=== PATIENT | male | born 1965 | race Caucasian/White ===

== ENCOUNTER 2017-08-02 17:34 | Emergency (ER) | payer OTHER ==
[2017-08-02 18:15] LABS: BASOPHILS 0.5 % (0-2); EOSINOPHILS 1.9 % (0-7); HEMATOCRIT 47.2 % (42.0-54.0); HEMOGLOBIN 16.6 g/dL (13.5-17.5); IMMATURE GRANULOCYTES 0.2 % (0-5); MCH 32.3 pg (26.0-34.0); MCHC 35.2 g/dL (31.0-37.0); MCV 91.8 fL (80.0-100.0); MEAN PLATELET VOLUME 10.1 fL (7.4-10.4); MONOCYTES 9.3 % (2-11); NEUTROPHILS 49.1 % (40-80); PLATELET COUNT 316 10x3/uL (130-400); RBC 5.14 10x6/uL (4.20-6.10); RDW 12.6 % (11.5-14.5); WBC 10.4 10x3/uL (4.8-10.8)
[2017-08-02 18:47] LABS: ALBUMIN 3.8 g/dL (3.4-5.0); ANION GAP 11.5 mmol/L (8-16); BILIRUBIN - TOTAL 0.51 mg/dL (0.2-1.3); CARBON DIOXIDE 26.4 mmol/L (21.0-32.0); CREATININE - SERUM 1.4 mg/dL (0.6-1.3); POTASSIUM - SERUM 3.9 mmol/L (3.5-5.1); PROTEIN - SERUM 7.9 g/dL (6.4-8.2)
[2017-08-02 18:56] LABS: APPEARANCE CLEAR (CLEAR); BILIRUBIN NEGATIVE (NEGATIVE); COLOR YELLOW (YELLOW); GLUCOSE NEGATIVE (NEGATIVE); KETONE NEGATIVE (NEGATIVE); NITRITE NEGATIVE (NEGATIVE); PROTEIN NEGATIVE (NEGATIVE); UROBILINOGEN NORMAL (NORMAL)
[2017-08-02 18:59] LABS: RED CELLS - URINE 0-5 /hpf (0-5)
[2017-08-02 19:00] LABS: BACTERIA FEW /hpf (NONE SEEN); WHITE CELLS - URINE OCC /hpf (0-5)
[2017-08-27] MEDS ORDERED: ZESTORETIC 20/21 TAB PO (12:07)
[2017-08-28 07:25] VITALS: BMI 33.9
== END 2017-08-02 20:44 | disposition home or self-care (01) ==
LOC: D.ER 17:34 → EDBD 17:34 → D.ER 20:44
PROVIDERS: Emergency Medicine
DX: K52.9 Noninfective gastroenteritis and colitis, unspecified (principal); I10 Essential (primary) hypertension

== ENCOUNTER 2017-08-28 07:28 | Day surgery (SDC) | payer OTHER ==
[2017-08-27 12:42] LABS: BASOPHILS 0.7 % (0-2); EOSINOPHILS 1.7 % (0-7); HEMATOCRIT 47.3 % (42.0-54.0); HEMOGLOBIN 16.2 g/dL (13.5-17.5); IMMATURE GRANULOCYTES 0.1 % (0-5); LYMPHOCYTES 36.2 % (15-50); MCHC 34.2 g/dL (31.0-37.0); MCV 93.3 fL (80.0-100.0); MONOCYTES 7.8 % (2-11); NEUTROPHILS 53.5 % (40-80); PLATELET COUNT 336 10x3/uL (130-400); RBC 5.07 10x6/uL (4.20-6.10); RDW 12.6 % (11.5-14.5); WBC 8.9 10x3/uL (4.8-10.8)
[2017-08-27 13:06] LABS: CALC OSMOLALITY 276 mosm/kg (275-300); CALCIUM 9.3 mg/dL (8.5-10.1); CHLORIDE - SERUM 101 mmol/L (98-107); CREATININE - SERUM 1.1 mg/dL (0.6-1.3); GLUCOSE 100 mg/dL (74-106); POTASSIUM - SERUM 4.1 mmol/L (3.5-5.1); SODIUM 137 mmol/L (136-145); UREA NITROGEN 21 mg/dL (7-18); eGFR NON AFRICAN AMERICAN 75 mL/min (90-120)
[~2017-08-28] VITALS: Ht 172.7 cm; Wt 101.2 kg
--- NOTE | ~2017-08-28 | OP ---
PATIENT NAME: GIL ZARAGOZA MEDICAL RECORD: [id number] :69 LOCATION:[facility] ADMISSION DATE: SURGEON: MIGUEL BLAND MD DATE OF OPERATION: 08/28/2017 PREOPERATIVE DIAGNOSES: 1. Gallstones. 2. Umbilical hernia. 3. Hypertension. 4. Hypercholesterolemia. POSTOPERATIVE DIAGNOSES: 1. Gallstones. 2. Umbilical hernia. 3. Hypertension. 4. Hypercholesterolemia. PROCEDURE: 1. Laparoscopic cholecystectomy. 2. Umbilical hernia repair with 4.3 cm Proceed mesh. SURGEON: Miguel Bland MD REPORT OF PROCEDURE: The patient's abdomen was prepped and draped in sterile fashion. A semicircular incision was made on the inferior aspect of the umbilicus. Electrocautery was used to dissect through the subcutaneous tissues and through the umbilical stalk. Upon doing this, we could see that the fascial defect was almost 2 cm in greatest diameter. The 0 Vicryls were placed on the fascia bilaterally and I bluntly entered the peritoneal cavity. A 12-mm Zen port was inserted. After insufflation was obtained and then under direct visualization, a 5 mm trocar was placed in the epigastrium and 2 more 5-mm trocars were placed in the right subcostal region. The gallbladder was grasped and elevated. There were some fatty adhesions present and these were teased down carefully with blunt dissection. The cystic artery and cystic duct were dissected free and these were clipped proximally and distally and ligated in standard fashion. The gallbladder was taken off the liver bed using electrocautery and placed in the right upper quadrant. Any bleeding from the liver bed was treated with electrocautery. We irrigated out the right upper quadrant and assured there was no bleeding or bile leakage. At this point, the gallbladder was taken out through the umbilicus. We cleared off the umbilical fascia above and below and placed a 4.3 cm Proceed patch in an underlay fashion. This was sutured to the fascia using interrupted 0 Prolenes times 4. The wound was then irrigated out thoroughly with normal saline. The fascia was closed transversely using running 0 Vicryls. The umbilicus was then tacked down to the fascia using an interrupted 3-0 Vicryl. The subcutaneous tissues were reapproximated with interrupted 3-0 Vicryl and then infused with 10 mL of 0.25% Marcaine with epinephrine. The skin incisions were closed with subcutaneous 5-0 Monocryl and dressed appropriately. COMPLICATIONS: None. CONDITION: Stable. ANESTHESIA: General endotracheal and local. OPERATIVE REPORT [id number] GIL ZARAGOZA BLOOD LOSS: Minimal. TRANSINT:[id number] Voice Confirmation ID: [id number] DOCUMENT ID: [id number] MIGUEL BLAND MD at 1309 CC: PERRY FARRELL [id number] DICTATION DATE: 08/28/17951 STEEL DIVISION SUPERVISOR: 08/28/17 1136 [facility] 08/28/17 [id number] [place] [address]
[2017-08-28 07:25] VITALS: BP 124/87; Ht 172.7 cm; Wt 101.2 kg
[~2017-08-28 07:28] MED LIST: ZESTORETIC 20/21 TAB PO
[2017-08-28] MEDS ORDERED: HYDROCODONE-APA1 TAB PO (09:48)
== END 2017-08-28 13:16 | disposition home or self-care (01) ==
LOC: D.OPS 07:28 → D.PAN 09:45 → D.OPS 09:45
PROVIDERS: Surgery
DX: K80.20 Calculus of gallbladder without cholecystitis without obstruction (principal); K42.9 Umbilical hernia without obstruction or gangrene; I10 Essential (primary) hypertension; E78.00 Pure hypercholesterolemia, unspecified; Z01.812 Encounter for preprocedural laboratory examination

== ENCOUNTER 2019-01-30 18:50 | Observation (INO) | payer OTHER ==
[~2019-01-30] VITALS: Ht 172.7 cm; Wt 59.1 kg
[~2019-01-30 18:50] MED LIST changes: +HYDROCODONE-APA1 TAB PO
[2019-01-30 19:16] VITALS: BP 118/79
[2019-01-30 19:23] LABS: BASOPHILS 0.5 % (0-2); EOSINOPHILS 2.6 % (0-7); HEMATOCRIT 52.1 % (42.0-54.0); HEMOGLOBIN 17.4 g/dL (13.5-17.5); IMMATURE GRANULOCYTES 0.2 % (0-5); LYMPHOCYTES 49.8 % (15-50); MCH 31.8 pg (26.0-34.0); MCHC 33.4 g/dL (31.0-37.0); MCV 95.2 fL (80.0-100.0); MEAN PLATELET VOLUME 9.7 fL (7.4-10.4); MONOCYTES 8.6 % (2-11); NEUTROPHILS 38.3 % (40-80); RBC 5.47 10x6/uL (4.20-6.10); RDW 12.8 % (11.5-14.5); WBC 13.2 10x3/uL (4.8-10.8)
[2019-01-30 19:28] LABS: PLATELET COUNT 427 10x3/uL (130-400)
[2019-01-30 19:30] LABS: CALC OSMOLALITY 272 mosm/kg (275-300); CALCIUM 9.3 mg/dL (8.5-10.1); CARBON DIOXIDE 30.1 mmol/L (21.0-32.0); CHLORIDE - SERUM 99 mmol/L (98-107); CREATININE - SERUM 1.3 mg/dL (0.6-1.3); POTASSIUM - SERUM 3.6 mmol/L (3.5-5.1); SODIUM 137 mmol/L (136-145); UREA NITROGEN 16 mg/dL (7-18); eGFR NON AFRICAN AMERICAN 62 mL/min (90-120)
[2019-01-30 19:37] LABS: INR 1.37 (0.85-1.17); PROTIME 16.3 SECONDS (11.6-15.0)
[2019-01-30 19:38] LABS: GLUCOSE 70 mg/dL (74-106)
[2019-01-30 19:46] LABS: ALBUMIN 4.1 g/dL (3.4-5.0); ALKALINE PHOSPHATASE 80 U/L (46-116); ALT (SGPT) 54 U/L (10-68); BILIRUBIN - TOTAL 0.29 mg/dL (0.2-1.3); CKMB 1.7 U/L (0.0-3.6); CREATINE KINASE 233 UL (21-232); PROTEIN - SERUM 8.5 g/dL (6.4-8.2); TROPONIN-I < 0.017 ng/mL (0.000-0.060)
[2019-01-30 19:49] LABS: APTT 166.9 SECONDS (22.8-39.4)
[2019-01-30 20:30] VITALS: BP 108/65
[2019-01-30 21:01] VITALS: BP 117/89
[2019-01-30 21:19] LABS: APPEARANCE CLEAR (CLEAR); BILIRUBIN NEGATIVE (NEGATIVE); COLOR STRAW (YELLOW); GLUCOSE NEGATIVE (NEGATIVE); KETONE NEGATIVE (NEGATIVE); NITRITE NEGATIVE (NEGATIVE); PROTEIN NEGATIVE (NEGATIVE); UROBILINOGEN NORMAL (NORMAL)
[2019-01-30 21:41] LABS: UDS - AMPHET NEGATIVE QUAL (NEGATIVE); UDS - BARB NEGATIVE QUAL (NEGATIVE); UDS - BENZO NEGATIVE QUAL (NEGATIVE); UDS - COCAINE NEGATIVE QUAL (NEGATIVE); UDS - OPIATE NEGATIVE QUAL (NEGATIVE); UDS - PCP NEGATIVE QUAL (NEGATIVE); UDS - THC NEGATIVE QUAL (NEGATIVE)
--- NOTE | 2019-01-30 21:45 | NUR ---
PT SITTING ON EDGE OF BED CONVERSING WITH FAMILY AT BEDSIDE. NO SIGNS DISTRESS NOTED. PT DENIES NEEDS. WILL CONTINUE TO MONITOR.
[2019-01-30 22:21] VITALS: BP 114/70; Ht 172.7 cm; Wt 59.1 kg
[2019-01-31 04:00] VITALS: BP 109/73; BP 118/55
[2019-01-31 05:28] LABS: BASOPHILS 0.6 % (0-2); EOSINOPHILS 3.1 % (0-7); HEMATOCRIT 50.2 % (42.0-54.0); HEMOGLOBIN 17.1 g/dL (13.5-17.5); IMMATURE GRANULOCYTES 0.2 % (0-5); LYMPHOCYTES 33.9 % (15-50); MCH 32.4 pg (26.0-34.0); MCHC 34.1 g/dL (31.0-37.0); MCV 95.3 fL (80.0-100.0); MEAN PLATELET VOLUME 9.7 fL (7.4-10.4); MONOCYTES 7.9 % (2-11); NEUTROPHILS 54.3 % (40-80); PLATELET COUNT 397 10x3/uL (130-400); RBC 5.27 10x6/uL (4.20-6.10); RDW 13.1 % (11.5-14.5); WBC 10.9 10x3/uL (4.8-10.8)
[2019-01-31 06:01] LABS: ALBUMIN 3.7 g/dL (3.4-5.0); ALKALINE PHOSPHATASE 76 U/L (46-116); ALT (SGPT) 54 U/L (10-68); BILIRUBIN - TOTAL 0.25 mg/dL (0.2-1.3); CALC OSMOLALITY 276 mosm/kg (275-300); CALCIUM 8.9 mg/dL (8.5-10.1); CARBON DIOXIDE 31.3 mmol/L (21.0-32.0); CHLORIDE - SERUM 102 mmol/L (98-107); CREATININE - SERUM 1.1 mg/dL (0.6-1.3); GLUCOSE 95 mg/dL (74-106); MAGNESIUM - SERUM 2.1 mg/dL (1.8-2.4); PROTEIN - SERUM 8.2 g/dL (6.4-8.2); SODIUM 138 mmol/L (136-145); UREA NITROGEN 15 mg/dL (7-18); eGFR NON AFRICAN AMERICAN 75 mL/min (90-120)
[2019-01-31 06:03] LABS: POTASSIUM - SERUM 4.4 mmol/L (3.5-5.1); TROPONIN-I < 0.017 ng/mL (0.000-0.060)
[2019-01-31 06:26] LABS: APTT 32.2 SECONDS (22.8-39.4); INR 1.01 (0.85-1.17); PROTIME 12.8 SECONDS (11.6-15.0)
--- NOTE | 2019-01-31 07:22 | NUR ---
REPORT RECEIVED. WILL CONTINUE WITH POC. PT CURRENTLY LYING SEMI FOWLERS. CALL LIGHT W/I REACH. RR EVEN AND UNLABORED ON RA. L.FOR PIV IS SALINE LOCKED. NO S/S OF DISTRESS NOTED. PT DENIES ANY NEEDS. WILL CTM.
[2019-01-31 09:35] VITALS: BP 119/82
[2019-01-31] MEDS ORDERED: MULTI-DAY VITAM1 TAB PO (13:09)
[2019-01-31] MEDS ORDERED: PRAVACHOL40 MG PO (13:09)
--- NOTE | 2019-01-31 13:10 | HP ---
PATIENT: GIL ZARAGOZA MEDICAL RECORD: [id number] ACCOUNT: [id number] LOCATION:[address] : [birth year] ADMISSION DATE: 01/30/19 PCP: PERRY FARRELL MD HISTORY AND PHYSICAL EXAMINATION REASON FOR ADMISSION: Confusion, slurred speech. HISTORY OF PRESENT ILLNESS: The patient is a 53-year-old male with essential hypertension. He said he went out. He had a little abdominal discomfort yesterday, went home from work early. He went out to a [employer] restaurant with his , drank 3-4 beers. His said he became confused, had slurred speech and trouble ambulating. He was brought to the ED where he seemed to improve slowly. A CT scan of the brain was unremarkable. Lab work was normal except for a blood alcohol of 245. He is adamant he only drank 3-4 beers max and drinks maybe a 30 pack per month in the summer. Denies headache, visual changes and his gait is totally normal now. PAST MEDICAL HISTORY: Essential hypertension, obesity, hyperlipidemia. PAST SURGICAL HISTORY: Laparoscopic cholecystectomy, umbilical hernia repair. FAMILY HISTORY: Father from COPD and lung cancer. Mother is in good health, he states except for osteoarthritis. 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 He has never smoked, but does drink a moderate amount of alcohol as mentioned above. ALLERGIES: SULFA AND PINEAPPLE. REVIEW OF SYSTEMS: CONSTITUTIONAL: No fever or fatigue. HEENT: No recent visual change, sinus congestion, sore throat, had some slurred speech yesterday. CARDIAC: No chest pain, palpitations, PND, orthopnea, claudication or edema. GASTROINTESTINAL: No nausea, vomiting except a mild dull pain in his left lower quadrant without change in stools, blood per rectum or melena. ENDOCRINE: Denies polyuria or polydipsia. MUSCULOSKELETAL: Chronic lumbago. GENITOURINARY: Nocturia once nightly. NEUROLOGIC: Currently, denies headache, motor or sensory loss. Says he remembers all the events of last evening. PHYSICAL EXAMINATION: VITAL SIGNS: Blood pressure 140/90, heart rate 70 and regular, he is afebrile. Weighs 234 pounds with a height of 68 inches, BMI 35.6. GENERAL: The patient is generally flushed from the neck up. HEENT: His eyes are clear and nonicteric. Oropharynx unremarkable. NECK: Supple. CHEST: Clear. HEART: Regular without murmur. ABDOMEN: Obese, soft, minimally tender on left lower quadrant. No rebound. Bowel sounds are active. No masses were felt. Umbilical hernia repair scar is noted. EXTREMITIES: No CC&E. NEUROLOGICAL: He is oriented to person, place, and time. Cranial nerves HISTORY AND PHYSICAL [id number] GIL ZARAGOZA intact. Gait is normal. Memory is intact. LABORATORY DATA: Blood alcohol was 245. BUN and creatinine were normal. CBC normal except for hemoglobin of 17. CT of the brain was unremarkable. ASSESSMENT: 1. Altered mental status, most likely from alcohol intoxication. 2. Slurred speech. 3. Hypertension, hyperlipidemia, and noncompliant on pravastatin, osteoarthritis. PLAN: The patient has had an abdominal ultrasound ordered by the Emergency Room physician. His white count was 13,000 on admission; it is now corrected to 10,000 without treatment[address] We will place him on banana bag, ordered carotid Dopplers. Probable discharge later this afternoon. We will call to talk to his concerning his alcohol consumption. TRANSINT:[id number] Voice Confirmation ID: [id number] DOCUMENT ID: [id number] PERRY FARRELL MD at 1310 CC: [id number] DICTATION DATE: 01/31/19807 FIELD SERVICE TECHNICIAN: 01/31/19 0834 ADM IN [facility] [address] [id number]
--- NOTE | 2019-01-31 13:51 | EC ---
PATIENT:GIL ZARAGOZA DATE OF SERVICE: 01/30/19 SEX: M MEDICAL RECORD: [id number] DATE OF : 69 LOCATION:D[facility] AGE OF PATIENT: 53 ADMISSION DATE: 01/30/19 REFERRING PHYSICIAN: INTERPRETING PHYSICIAN: BON LUCIO MD ECHOCARDIOGRAM REPORT ECHO CHARGES 4 ECHO COMPLETE Date: 01/31/19 CLINICAL DIAGNOSIS: TIA ECHOCARDIOGRAPHIC MEASUREMENTS (adult normal given) AC root (d.<3.7cm) 3.0 cm LV Septum d (<1.2 cm> 0.9 cm Valve Excursion 2.0 cm LV Septum (systole) 1.2 cm Left Atria (s.<4.0cm> 3.4 cm LVPW d(<1.2cm) 0.9 cm RV (d.<2.3cm) 3.7 cm LVPW (sytole) 1.4 cm LV diastole(<5.6CM) 5.2 cm MV E-F(>70mm/sec) cm LV systole 3.7 cm LVOT Diameter 2.1 cm MV exc.(>10mm) cm Est.ejection fraction (50-75%) % DOPPLER: LVIT cm/sec A 52 cm/sec E 55 cm/sec LA cm/sec RVSP 21.5 mmHg LVOT 101 cm/sec AOP1/2T m/s Asc. Ao 122 cm/sec RVOT 87 cm/sec RA cm/sec PA 99 cm/sec AV Gradient Peak 6.0 mmHg AV Mean 3.4 mmHg AV Area 1.5 cm MV Gradient Peak 2.0 mmHg MV Mean 1.4 mmHg MV Area cm COMMENTS: Building Estimator: [facility] Patient Financial Advocate: 3 Dr. Banda TAPE# PACS Pericardial Effusion N DATE OF SERVICE: Adequate 2D, color flow, spectral Doppler, and M-mode. No LVH. LV internal dimensions are normal. Wall motion is normal. EF is greater than or equal to 55%. Aortic valve is tricuspid. No evidence of stenosis by Doppler interrogation. Left atrium is normal. Mitral valve shows no prolapse. Trace MR. Right-sided chambers grossly normal. Trace TR. TRANSINT:[id number] Voice Confirmation ID: [id number] DOCUMENT ID: [id number] ECHOCARDIOGRAM REPORT [id number] NIKGIL PERKINS BON LUCIO MD at 1351 CC: [id number] DICTATION DATE: 01/31/19 1202 PRESIDENT AND CHIEF COMMERCIAL OFFICER: 01/31/19 1227 ADM IN [id number] [place] [address]
--- NOTE | 2019-01-31 14:42 | NUR ---
PT DISCHARGED HOME VIA WHEELCHAIR WITH FAMILY. PIV REMOVED WITH CATHETER TIP FULLY INTACT. PT SIGNED PROPER DISCHARGE INSTRUCTIONS AND REMOVED ALL VALUABLES FROM THE ROOM.
== END 2019-01-31 14:45 | disposition home or self-care (01) ==
LOC: D.ER 18:50 → OBSVTIME 21:34 → D.M2 21:34
PROVIDERS: Emergency Medicine; Family Medicine; ADMIT Family Medicine; ATTEND Family Medicine
DX: F10.129 Alcohol abuse with intoxication, unspecified (principal); Y90.8 Blood alcohol level of 240 mg/100 ml or more; I10 Essential (primary) hypertension; E78.5 Hyperlipidemia, unspecified; K76.0 Fatty (change of) liver, not elsewhere classified; R47.81 Slurred speech